=== PATIENT | male | born 1990 | race African-American/Black ===

== ENCOUNTER 2022-09-10 07:54 | Emergency (ER) | payer OTHER ==
[~2022-09-10] VITALS: Ht 182.9 cm; Wt 85.3 kg
--- NOTE | 2022-09-10 08:00 | NUR ---
seen and examined by
--- NOTE | 2022-09-10 08:15 | NUR ---
xray in process
--- NOTE | 2022-09-10 08:20 | NUR ---
Patient discharged to home in stable condition. Written and verbal after care instructions given. Patient verbalizes understanding of instructions. Stressed follow up or return to ER for worsening s/s.
[2022-09-10 08:36] VITALS: BP 112/78
== END 2022-09-10 08:30 | disposition home or self-care (01) ==
LOC: ER 07:54
DX: S39.011A Strain of muscle, fascia and tendon of abdomen, initial encounter (principal); M25.551 Pain in right hip; X58.XXXA Exposure to other specified factors, initial encounter; Y93.89 Activity, other specified; Y92.89 Other specified places as the place of occurrence of the external cause; Y99.8 Other external cause status
CPT/HCPCS: 73502; A4663